=== PATIENT | male | born 1960 | race American Indian/Alaskan Native ===

== ENCOUNTER 2019-05-11 16:25 | Emergency (ER) | payer MEDICAID ==
[2019-05-11] MEDS ORDERED: levETIRAcetam 1000 MG/NS 0.75% 1,000 MG/100 ML BAG IV ONE (17:44)
[2019-05-11 19:12] LABS: BUN/Creatinine Ratio 15; Blood Urea Nitrogen 9 mg/dL (9-20); Hemolysis Index 5
[2019-05-11 19:38] LABS: Hematocrit 31.9 % (35.5-45.6); Hemoglobin 10.1 gm/dl (11.8-15.2); Mean Corpuscular HGB Conc 32 % (32-34); Mean Corpuscular Volume 71 fl (84-94); Platelet Count 172 K/mm3 (140-440); Red Blood Count 4.46 M/mm3 (3.65-5.03); Red Cell Distribution Width 19.7 % (13.2-15.2)
--- NOTE | 2019-05-11 20:01 | Emergency Department Report ---
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 Patient was found at his custodial convulsing. Patient also was noted to have blood sugar 55 patient was given glucagon D50 which did stop the seizures. Patient arrived here in the emergency department on my exam is stated that he has no complaints. Patient shakes his head no to having chest pain shortness of breath fevers chills nausea vomiting or headache. - Related Data Allergies Allergy/AdvReac Type Severity Reaction Status Date / Time lisinopril Allergy Unknown Verified 05/11/19 18:44 ED Review of Systems ROS: Stated complaint: HYPOGLYCEMIA Other details as noted in HPI Comment: All other systems reviewed and negative ED Past Medical Hx - Past Medical History Previous Medical History?: Yes Hx Hypertension: Yes Hx CVA: Yes (R sided facial droop residual/ LMCA stroke) Hx Diabetes: Yes Hx Seizures: Yes Hx HIV: Yes Additional medical history: C. diff., Pulmonary insuff., GI Bleed, DKA, Alcohol abuse - Surgical History Past Surgical History?: Yes Additional Surgical History: PEG tube placement - Social History Smoking Status: Unknown if ever smoked Substance Use Type: None ED Physical Exam - General Limitations: Altered Mental Status General appearance: alert, in no apparent distress - Head Head exam: Present: atraumatic, normocephalic - Eye Eye exam: Present: normal appearance, PERRL, EOMI - ENT ENT exam: Present: mucous membranes moist - Neck Neck exam: Present: normal inspection - Respiratory Respiratory exam: Present: normal lung sounds bilaterally. Absent: respiratory distress, wheezes, rales, rhonchi - Cardiovascular Cardiovascular Exam: Present: regular rate, normal rhythm, normal heart sounds. Absent: systolic murmur, diastolic murmur, rubs, gallop - GI/Abdominal GI/Abdominal exam: Present: soft, normal bowel sounds. Absent: distended, tenderness, guarding, rebound - Rectal Rectal exam: Present: deferred - Extremities Exam Extremities exam: Present: normal inspection - Back Exam Back exam: Present: normal inspection - Neurological Exam Neurological exam: Present: alert, oriented X3, motor sensory deficit (residual R hemiparesis with aphasia) - Psychiatric Psychiatric exam: Present: normal affect, normal mood - Skin Skin exam: Present: warm, dry, intact, normal color. Absent: rash ED Course Vital Signs 05/11/19 05/11/19 17:28 18:36 Temperature 97.6 F Pulse Rate 61 Respiratory 12 Rate Blood Pressure 148/79 Blood Pressure 148/79 [Right] O2 Sat by Pulse 100 100 Oximetry ED Medical Decision Making - Lab Data Result diagrams: 05/11/19 18:05 05/11/19 18:05 - Medical Decision Making Patient is a 59-year-old gentleman who is presenting status post seizure. Patient was loaded with Her on arrival however once I was able to read the patient's transport sheet became clear that the patient likely was hypoglycemic prior to arrival which then caused his seizure. Patient has a history of seizures as documented on his custodial paperwork however he is not on seizure medications. His seizure medication will not be continued and the patient will be referred back to his primary care physician and determine if this is warranted. Patient be discharged home. Critical care attestation.: If time is entered above; I have spent that time in minutes in the direct care of this critically ill patient, excluding procedure time. ED Disposition Clinical Impression: Seizure, Hypoglycemia Disposition: DC-01 TO HOME OR SELFCARE Is pt being admited?: No Does the pt Need Aspirin: No Condition: Stable Instructions: Diabetic Hypoglycemia (ED) Additional Instructions: Please refer to primary care to determine if a neurology consult is warranted. Patient likely had a seizure secondary to hypoglycemia. Seizure medications have not been can take as an outpatient. Referrals: PRIMARY CARE, [Primary Care Provider] - 3-5 Days Time of Disposition: 20:06
[2019-05-11 20:13] VITALS: BP 139/80
== END 2019-05-11 21:41 | disposition home or self-care (01) ==
LOC: ED 16:25
DX: E16.2 Hypoglycemia, unspecified (principal); R56.9 Unspecified convulsions; I10 Essential (primary) hypertension; E11.9 Type 2 diabetes mellitus without complications; Z88.5 Allergy status to narcotic agent; Z21 Asymptomatic human immunodeficiency virus [HIV] infection status
CPT/HCPCS: 36415; 80048; 82962; 85025; 96365; 99284; J1953